=== PATIENT | female | born 1935 | race Caucasian/White ===

== ENCOUNTER 2021-02-04 06:40 | Inpatient (IN) | payer OTHER ==
[~2021-02-04] VITALS: Ht 167.6 cm; Wt 129.1 kg
[~2021-02-04 06:40] MED LIST: ALEN70 PO; AMLO5 PO; Aspir 8181 MG PO; CAND16 PO; CAND4; CARI350 PO; CELE200 PO; CIPR500 PO; CLIN300 PO; GABA100 PO; GABA600 PO; HYDCHL25 PO; Hair, Skin & N1 EACH PO; LEVSOD125 PO; LEVSOD137 PO; LOSARTAN POTAS100 MG PO; LOSHYD100 PO; METF500 PO; MULVITMINF PO; OXYACE5T PO; OXYC1TAB11 PO; PROP60 PO; PROP80ER PO; SIMV10 PO; SODCHL.65S
[2021-02-04] MEDS ORDERED: GLIP5 PO (07:51)
[2021-02-04] MEDS ORDERED: TRADJENTA5 MG PO (07:52)
[2021-02-04] MEDS ORDERED: DULO60 PO (07:54)
[2021-02-04] MEDS ORDERED: FLAX PO (07:55)
[2021-02-04] MEDS ORDERED: VITAMIN D5000 UNIT PO (07:56)
[2021-02-04] MEDS ORDERED: B-121000 MC7 PO (07:56)
[2021-02-04] MEDS ORDERED: ZINC15 PO (07:57)
[2021-02-04] MEDS ORDERED: Acerola C500 MG PO (07:57)
[2021-02-04 09:30] LABS: BASOPHILS ABSOLUTE AUTO 0.03 K/mm3 (0.00-0.23); BASOPHILS PERCENT AUTO 0 % (0-2); EOSINOPHILS ABSOLUTE AUTO 0.01 K/mm3 (0.00-0.68); EOSINOPHILS PERCENT AUTO 0 % (0-6); Hematocrit 37.8 % (33.0-51.0); Hemoglobin 12.7 g/dL (11.5-16.0); IMMATURE GRAN ABSOLUTE AUTO 0.21 K/mm3 (0.00-0.10); IMMATURE GRAN PERCENT AUTO 2 % (0-1); LYMPHOCYTES ABSOLUTE AUTO 1.38 K/mm3 (0.84-5.20); LYMPHOCYTES PERCENT AUTO 12 % (21-46); MONOCYTES ABSOLUTE AUTO 0.85 K/mm3 (0.16-1.47); MONOCYTES PERCENT AUTO 7 % (4-13); Mean Corpuscular HGB 32.2 pg (26.0-34.0); Mean Corpuscular HGB Conc 33.6 g/dL (31.5-36.5); Mean Corpuscular Volume 96 fL (80-100); Mean Platelet Volume 10.5 fL (9.1-12.4); NEUTROPHILS PERCENT AUTO 79 % (41-73); Platelet Count 186 K/mm3 (150-400); RDW Coefficient Variation 12.3 % (11.7-14.2); RDW Standard Deviation 43.7 fL (35.1-46.3); Red Blood Cell Count 3.94 M/mm3 (3.80-5.20); White Blood Cell Count 11.78 K/mm3 (4.00-11.30)
[2021-02-04 09:53] LABS: Albumin, Blood 2.7 g/dL (3.4-5.0); Albumin/Globulin Ratio 0.6 (0.8-1.8); Bilirubin, Total 0.6 mg/dL (0.1-1.0); Bun/Creatinine Ratio 22.2 (12.0-20.0); Calcium, Blood 8.4 mg/dL (8.5-10.1); Creatinine, Blood 1.35 mg/dL (0.40-1.00); Globulin, Blood 4.2 g/dL (2.2-4.0); Potassium, Blood 4.5 mmol/L (3.5-5.5); Total Protein, Blood 6.9 g/dL (6.4-8.2)
[2021-02-04 10:14] LABS: Source, Urine Clean Catch
[2021-02-04 10:42] LABS: Appearance, Urine Hazy (Clear); Bilirubin, Urine Neg (Neg); Blood, Urine 2+ (Neg); Color, Urine Yellow (P-Yellow); Glucose Qualitative, Urine 4+ (Neg); Ketones, Urine Neg (Neg); Leukocyte Esterase, Urine 3+ (Neg); Nitrite, Urine Pos (Neg); Protein, Urine 1+ (Neg); Urobilinogen, Urine NORM (Normal)
[2021-02-04 11:37] LABS: White Blood Cells, Urine 50-100 /hpf (0-5)
[2021-02-04 11:38] LABS: Bacteria Many /hpf; Red Blood Cells, Urine 0-2 /hpf (0-2); Squamous Epithelial Cells Few /hpf (Few)
[2021-02-04] MEDS ORDERED: GLIP5ER PO (13:47)
[2021-02-04] MEDS ORDERED: LOSARTAN-HCTZ1 EAC5 PO (13:47)
[2021-02-04] MEDS ORDERED: PROPRANOLOL HC120 MG PO (13:48)
[2021-02-04] MEDS ORDERED: Simvastatin20 MG PO (13:48)
--- NOTE | 2021-02-04 20:03 | NUR ---
PT RESTING IN BED AFTER ADMISSION ASSESSMENT. FAMILY HAS GONE HOME. NEPHEW HAS PA AND MADISYN IS AT [employer]. FAMILY CONTACT INFORMATION ON BOARD. PT REMIANS ALERT WITH MILD CONFUSION. IV IS SL AND WNL, 2L O2 VIA NC. LUNGS DEMISNISHED IN ALL AREAS. PT IS BEDBOUND AND NEEDS 2 PERSON ASSIST WITH BEDPAN. BED IN LOW POSITION AND CALL LIGHT WITHIN REACH. STAFF WILL CONTINUE TO MONITOR.
[2021-02-05 05:43] LABS: BASOPHILS ABSOLUTE AUTO 0.03 K/mm3 (0.00-0.23); BASOPHILS PERCENT AUTO 0 % (0-2); EOSINOPHILS PERCENT AUTO 0 % (0-6); Hematocrit 41.3 % (33.0-51.0); Hemoglobin 14.1 g/dL (11.5-16.0); IMMATURE GRAN ABSOLUTE AUTO 0.14 K/mm3 (0.00-0.10); IMMATURE GRAN PERCENT AUTO 1 % (0-1); LYMPHOCYTES ABSOLUTE AUTO 1.54 K/mm3 (0.84-5.20); LYMPHOCYTES PERCENT AUTO 16 % (21-46); MONOCYTES ABSOLUTE AUTO 0.22 K/mm3 (0.16-1.47); MONOCYTES PERCENT AUTO 2 % (4-13); Mean Corpuscular HGB 32.6 pg (26.0-34.0); Mean Corpuscular HGB Conc 34.1 g/dL (31.5-36.5); Mean Corpuscular Volume 95 fL (80-100); Mean Platelet Volume 11.1 fL (9.1-12.4); NEUTROPHILS ABSOLUTE AUTO 8.01 K/mm3 (1.96-9.15); NEUTROPHILS PERCENT AUTO 81 % (41-73); Platelet Count 229 K/mm3 (150-400); RDW Coefficient Variation 12.2 % (11.7-14.2); RDW Standard Deviation 42.9 fL (35.1-46.3); Red Blood Cell Count 4.33 M/mm3 (3.80-5.20); White Blood Cell Count 9.94 K/mm3 (4.00-11.30)
[2021-02-05 06:03] LABS: Bun/Creatinine Ratio 27.6 (12.0-20.0); Calcium, Blood 8.7 mg/dL (8.5-10.1); Creatinine, Blood 1.23 mg/dL (0.40-1.00); Potassium, Blood 5.4 mmol/L (3.5-5.5)
--- NOTE | 2021-02-05 07:26 | NUR ---
SHIFT SUMMARY: PATIENT IS A&O TO SELF, PLEASANTLY CONFUSED. BLOOD GLUCOSE AT HS WAS 481. DR ROBERTO WAS NOTIFIED AND ORDERS FOR BLOOD GLUCOSE CHECKS AND HOME MEDS WERE OBTAINED. PATIENT IS INC. OF URINE AND STOOL. UNABLE TO REPOSITION SELF IN THE BED, REQUIRING T&P Q2 HOURS. BARRIATRIC BED WAS REQUESTED. VSS, BED SIDE SWALLOW EVAL WAS COMPLETED AND PATIENT HAS NO DIFICULTY WITH ORAL INTAKE. PATIENT PULLED IV SITE THIS AM. NEW START WAS ATTEMPTED X2 UNSUCCESSFULLY.
[2021-02-05 08:36] LABS: Glucose, Blood 493 mg/dL (70-99)
--- NOTE | 2021-02-05 12:09 | NUR ---
ELEVATED CBG OF >500 THIS MORNING, LAB CAME AND REDRAW COMPLETED. DR. QUIJANO NOTIFIED OF CBG 493. ORDERS TO INCREASE INSULIN LISPRO FROM LOW SLIDING SCALE TO HIGH SLIDING SCALE FOR NEXT DOSAGE AT 1130.
[2021-02-05 12:51] LABS: Glucose, Blood 586 mg/dL (70-99)
--- NOTE | 2021-02-05 14:15 | NUR ---
Spoke with Primary RN Jie and discussed case. Jie reports family may be considering comfort care for Pt. Pt resting in bed upon arrival. Pt is A&O to self only. Pt appears comfortable with no S/S of distress. Pt engages in nonsensical conversation and states having 6 children but has not named them yet. Pt having blood drawn and this RN ended visit. Called and spoke with Pt's nephew Mahamed. Mahamed reports being Pt's POA and lives in [facility]. Discussed goals of care. Mahamed reports wanting to continue treatment but feels that Pt would not want resuscitation efforts if Pt declines. He states Pt would not want CPR or Intubation. Mahamed reports no thoughts of hospice or comfort care at this time. Mahamed reports his sister (Pt's niece) plans to visit during visiting hours and can report Pt's needs and function better. Mahamed expresses appreciation of call and reports no concerns at this time. Palliative Care will F/U when nidavid Casey is visiting.
--- NOTE | 2021-02-05 15:22 | NUR ---
RM: [id number] NAME: Chelsea Ruiz : 1935 PCP: Dr. JensenPATIENT PHYSICIAN: Dr. Nielsen CC: Kathleen AminADMIT: 02/04/21 DISCHARGE DATE: TBD DX: AFIB with RVR, UTI, TANIA RECENT HOSPITILIZATIONS: N/ARESIDENCE: [address], [place]. [address] CAREGIVER: Mahamed Agustin, Family Member, UKS: CKD stage III, morbid obesity, hypertensive renal disease, hypothyroidism, osteoporosis, spinalstenosis of the lumbar region DME: DM supplies, bariatric gurney, walker with wheels CCM: None HOME HEALTH: [facility] in November 2020 - pt. declined appointment.Update 02/05/21: Met with pt. and family member Carmela to discuss discharge planning and care coordination. Per pt. and Carmela, pt. is well supported in current living situation and is agreeable to returning home on home health once discharged. I will provide Carmela with care clinician information for additional assistance prior to discharge. They are requesting [facility] for HH. DME including hospital bed, bariatric wheelchair and wound care supplies have not been received by pt. We will contact [facility] to check status. Order can be changed to [facility] if indicated.
--- NOTE | 2021-02-05 16:07 | NUR ---
F/U visit this afternoon. Pt resting in bed with veronica Casey at bedside. Pt is pleasantly confused with no S/S of distress at this time. Engaged in therapeutic discussion with Carmela on the importance of planning for Pt's future. Carmela reports at baseline Pt's mentation is clear and orientated. Carmela reports Pt's function as declined over the last month. Pt is only able to ambulate to the bathroom and back. She spends most of the day in the chair or bed. Carmela reports Pt is incontinent and requires assistance with bathing and dressing. Carmela reports Pt has a significant pressure ulcer on her coccyx area that Dr South has been addressing. Educated Carmela on pressure relief measures to help with wound healing and prevention of future pressure ulcers. Carmela reports she has been approved by the state to be Pt's caregiver and discussions with Pt has been made for the future. Carmela reports if Pt's careneeds increase past her ability then Pt is agreeable to higher level of care. Continued therapeutic listening and answered questions. No other concerns reported at this time. Palliative Care will remain available.
--- NOTE | 2021-02-05 16:19 | NUR ---
CBG PRIOR TO LUNCH ELEVATED TO 586, DR. QUIJANO NOTIFIED AND ORDERS FOR 10 UNITS LANTUS GIVEN.
--- NOTE | 2021-02-05 16:50 | NUR ---
SHIFT SUMMARY NO ACUTE EVENTS THIS SHIFT, VSS. PATIENT REMAINED ON ROOM AIR THIS SHIFT, TOLERATING WELL. PT ORIENTED TO SELF, UNABLE TO STATE WHERE SHE WAS, DISORIENTED TO SURROUNDINGS AND EVENT. PT FOLLOWED COMMANDS T/O SHIFT, WAS ABLE TO MINIMALLY ASSIST WITH TURNING IN BED. REPOSITIONED T/O SHIFT BY NURSING STAFF, ASSISTED WITH MEALS. PT'S NIECE ENDORSED THAT THE PT NORMALLY NEEDS ASSISTANCE WITH MEALS AT BASELINE. PT WAS ABLE TO TAKE PO MEDS WITH WATER, HOWEVER APPEARED TO TOLERATE PILLS IN APPLESAUCE BETTER. BLOOD SUGAR WAS ELEVATED THROUGHOUT THIS SHIFT, DR. QUIJANO NOTIFIED. SEE PREVIOUS NURSING NOTES THIS SHIFT.
[2021-02-05 17:05] LABS: Glucose, Blood 468 mg/dL (70-99)
--- NOTE | 2021-02-05 17:12 | NUR ---
UPDATE: BLOOD SUGAR ELEVATED TO 468. DR. QUIJANO NOTIFIED AND ORDERS GIVEN TO INCREASE DIALY LANTUS DOSE TO 15 UNITS STARTING TOMORROW, 02/06/21.
--- NOTE | 2021-02-05 21:17 | NUR ---
CBG THIS EVENING 478. 6 UNITS OF HUMALOG GIVEN PER HS DOSE HIGH SLIDING SCALE. NOTIFIED DR. ROBERTO. NO NEW ORDERS AT THIS TIME. DR. ROBERTO WANTED TO STAY WITH JUST SLIDING SCALE DOSE THIS EVENING PT HAD FIRST DOSE OF SEMGLEE 10 UNITS THIS AFTERNOON AND PT RESTARTED ON ORAL DIABETIC MEDICATIONS.
--- NOTE | 2021-02-06 04:38 | NUR ---
SHIFT SUMMARY PT PLEASANTLY CONFUSED. ALERT TO SELF ONLY. PT YELLED OUT INTERMITTENTLY, MORE SO EARLY IN SHIFT. PT IS WEAK AND DECONDITIONED. ABLE TO ASSIST SLIGHTLY WITH TURNING IN THE BED BUT REQUIRES TWO PEOPLE WITH TURNS AND CHANGES. PT REMAINED ON RA. SOME SOB REPORTED BY PT WITH HEAD OF BED TOO HIGH OR TOO LOW. DEEP TISSUE WOUND TO BILATERAL BUTTOCKS. PT INCONTINENT THIS EVENING. ATTENDS IN PLACE. CBG ELEVATED AT 478. SEE PREVIOUS NOTE. REDNESS TO PANNUS FOLDS. POWDER APPLIED. NO COMPLAINTS OF PAIN. VITAL SIGNS STABLE. WILL CONTINUE TO MONITOR.
[2021-02-06 09:23] LABS: Bun/Creatinine Ratio 32.3 (12.0-20.0); Calcium, Blood 8.7 mg/dL (8.5-10.1); Creatinine, Blood 1.24 mg/dL (0.40-1.00)
--- NOTE | 2021-02-06 15:59 | NUR ---
Update 02/06/2021: Discussed DME orders with Dr. South's MA. Grace has not contacted staff back regarding DME orders. Discussed plan for DME with family member Carmela with pt. present. [facility] Pt. likely to discharge tomorrow if she remains stable overnight.
--- NOTE | 2021-02-06 17:46 | NUR ---
SHIFT SUMMARY PATIENT A/O X2 THIS SHIFT. PATIENT REMAINS ON BEDREST. PATIENT WORKED WITH PT/OT THIS SHIFT. PATIENT'S BLOOD GLUCOSE REMAINS IN THE 300+ RANGE. DR NOTIFIED, MEDICATIONS ADJUSTED THIS AM, BLOOD GLUCOSE TRENDING DOWN THROUGHOUT THE DAY. PATIENT'S NIECE IN THE ROOM VISITING THIS AFTERNOON. PATIENT WITHOUT RESPIRATORY DISTRESS THROUGHOUT THIS SHIFT. PATIENT CURRENTLY LYING IN BED RESTING.
--- NOTE | 2021-02-07 04:49 | NUR ---
SHIFT ASSESSMENT NO ACUTE CHANGES THIS EVENING. PT SLEPT THROUGHOUT THE NIGHT. REMAINS CONFUSED. ORIENTED X 2. INCONTINENT. ATTENDS IN PLACE. PRESSURE SORES WITH TWO SMALL OPEN SORES TO BUTTOCKS. PT ONLY ABLE TO HELP MINIMALLY WITH TURNING AND CHANGING. CBG 300 THIS EVENING AT HS. SLIDING SCALE AND NEW ORDER OF 30 UNITS SEMGLEE GIVEN. PT HAD NO COMPLAINTS OF PAIN. VITAL SIGNS STABLE. WILL CONTINUE TO MONITOR.
--- NOTE | 2021-02-07 15:09 | NUR ---
Update 02/07/21: Per chart review with Dr. Nielsen, pt. likely to discharge within the next 24/48 hours. Orders for hospital bed and bariatric wheelchair sent and received by [facility]. Set to be delivered to home today. Pt. scheduled for hospital f/u appointment 02/13/21 at 4:[address] Heath [address] Dr. South did not have an opening. Pt. states her understanding of potential discharge plan. As noted previously, she denies concerns regarding discharging home with niece. Orders faxed to [facility]. Pt. given discharge letter with appointment time/date noted.
--- NOTE | 2021-02-07 17:17 | NUR ---
SHIFT SUMMARY PATIENT ALERT AND ORIENTED, OCCASIONALLY FORGETFUL THIS SHIFT. PATIENT UP WITH OT TO THE CHAIR THIS SHIFT. PATIENT UP TO BED, THEN BACK TO BEDSIDE CHAIR WITH 2 ASSIST THIS AFTERNOON. PATIENT'S NIECE IN THE ROOM VISITING THIS AFTERNOON. PATIENT CURRENTLY SITTING UP IN CHAIR AWAITING DINNER.
--- NOTE | 2021-02-07 19:10 | NUR ---
ASSUMED CARE RECEIVED REPORT FROM MOOKIE SHIPLEY. PT SITTING UP IN CHAIR, IN NAD. NO ACUTE NEEDS ASSESSED AT THIS TIME. CALL LIGHT, POSSESSIONS IN REACH.
--- NOTE | 2021-02-08 03:48 | NUR ---
BAIT MAN SUMMARY PT ASLEEP, IN NAD. A&O X2-3, PLEASANT AND COOPERATIVE WITH CARES. HAS BEEN SLEEPING ON AND OFF T/O NIGHT. VS REVIEWED,WNL; O2 SATS REMAIN STABLE ON RA. NO ACUTE CHANGES TO REPORT OVERNIGHT. NO C/O PAIN. NO ACUTE NEEDS ASSESSED AT THIS TIME. CALL LIGHT, POSSESSIONS IN REACH, BED IN LOW AND LOCKED POSITION WITH ALARMS ON. WILL CONTINUE TO PROVIDE CARE NEEDED UNTIL REPORT GIVEN TO ONCOMING RN.
[2021-02-08] MEDS ORDERED: JARDIANCE25 MG PO (14:07)
[2021-02-08] MEDS ORDERED: SEMGLEE PE100 UNIT/1 SQ (14:11)
[2021-02-08] MEDS ORDERED: HUMALOG KW100 UNIT/1 SC (14:11)
--- NOTE | 2021-02-08 15:21 | NUR ---
DISCHARGED HOME WITH HH WITH NIECE. NIECE VERBALIZED UNDERSTANDING OF ADMINISTRATION OF INSULIN, AND BLOOD GLUCOSE MONITORING. NIECE STATES SHE HAS MANAGED DIABETES AND INSULIN ADMINISTRATION PREVIOUSLY. THIS RN DEMONSTRATED PROPER TECHNIQUE AND WRITTEN INSTRUCTIONS WERE ALSO PROVIDED. ALL QUESTIONS WERE ANSWERED. ALL PERSONAL BELONGINGS WERE SENT HOME WITH PATIENT.
== END 2021-02-08 15:17 | disposition home or self-care (01) | DRG 193 ==
LOC: ER 06:40 → ERHOLD 06:41 → MEDS 16:53
PROVIDERS: Emergency Medicine; ADMIT Internal Medicine
DX: J18.9 Pneumonia, unspecified organism (principal); J96.01 Acute respiratory failure with hypoxia; N39.0 Urinary tract infection, site not specified; G93.49 Other encephalopathy; B96.20 Unspecified Escherichia coli [E. coli] as the cause of diseases classified elsewhere; E66.01 Morbid (severe) obesity due to excess calories; E78.5 Hyperlipidemia, unspecified; I12.9 Hypertensive chronic kidney disease with stage 1 through stage 4 chronic kidney disease, or unspecified chronic kidney disease; N18.30 Chronic kidney disease, stage 3 unspecified; Z88.2 Allergy status to sulfonamides; Z88.8 Allergy status to other drugs, medicaments and biological substances; E03.9 Hypothyroidism, unspecified; M81.0 Age-related osteoporosis without current pathological fracture; Z90.49 Acquired absence of other specified parts of digestive tract; Z98.890 Other specified postprocedural states; Z79.82 Long term (current) use of aspirin; Z79.899 Other long term (current) drug therapy; E11.22 Type 2 diabetes mellitus with diabetic chronic kidney disease; L89.322 Pressure ulcer of left buttock, stage 2; L89.312 Pressure ulcer of right buttock, stage 2
CPT/HCPCS: 36415; 71046; 80048; 80053; 81001; 82947; 83036; 83690; 85025; 87077; 87086; 87186; 93005; 93010; 94667; 94668; 94760; 96365; 96367; 96372; 96375; 96376; 97110; 97116; 97162; 97166; 97530; 99285-25; A9270; G0378; J0456; J0696; J1650; J2543; J2920; J2930; J7030; J7050

== ENCOUNTER → 2021-02-28 | Outpatient (CLI) | payer OTHER ==
[~2021-02-28] MED LIST changes: +Acerola C500 MG PO; +B-121000 MC7 PO; +DULO60 PO; +FLAX PO; +GLIP5 PO; +GLIP5ER PO; +HUMALOG KW100 UNIT/1 SC; +JARDIANCE25 MG PO; +LOSARTAN-HCTZ1 EAC5 PO; +PROPRANOLOL HC120 MG PO; +SEMGLEE PE100 UNIT/1 SQ; +Simvastatin20 MG PO; +TRADJENTA5 MG PO; +VITAMIN D5000 UNIT PO; +ZINC15 PO
== END | disposition home or self-care (01) ==
LOC: LAB SHORT 13:30 → LAB 13:30
DX: N39.0 Urinary tract infection, site not specified (principal)
CPT/HCPCS: 87077; 87086; 87186

== ENCOUNTER 2021-06-26 10:43 | Emergency (ER) | payer OTHER ==
[~2021-06-26] VITALS: Ht 162.6 cm; Wt 111.1 kg
[2021-06-26 11:14] LABS: BASOPHILS ABSOLUTE AUTO 0.03 K/mm3 (0.00-0.23); BASOPHILS PERCENT AUTO 0 % (0-2); EOSINOPHILS ABSOLUTE AUTO 0.31 K/mm3 (0.00-0.68); EOSINOPHILS PERCENT AUTO 3 % (0-6); Hematocrit 42.4 % (33.0-51.0); Hemoglobin 13.4 g/dL (11.5-16.0); IMMATURE GRAN ABSOLUTE AUTO 0.07 K/mm3 (0.00-0.10); IMMATURE GRAN PERCENT AUTO 1 % (0-1); LYMPHOCYTES PERCENT AUTO 20 % (21-46); MONOCYTES ABSOLUTE AUTO 0.69 K/mm3 (0.16-1.47); MONOCYTES PERCENT AUTO 7 % (4-13); Mean Corpuscular HGB 30.3 pg (26.0-34.0); Mean Corpuscular HGB Conc 31.6 g/dL (31.5-36.5); Mean Corpuscular Volume 96 fL (80-100); Mean Platelet Volume 9.8 fL (9.1-12.4); NEUTROPHILS ABSOLUTE AUTO 7.16 K/mm3 (1.96-9.15); NEUTROPHILS PERCENT AUTO 69 % (41-73); Platelet Count 246 K/mm3 (150-400); RDW Standard Deviation 46.7 fL (35.1-46.3); Red Blood Cell Count 4.42 M/mm3 (3.80-5.20); White Blood Cell Count 10.36 K/mm3 (4.00-11.30)
[2021-06-26 11:30] LABS: Source, Urine Clean Catch
[2021-06-26 11:33] LABS: Appearance, Urine Hazy (Clear); Bilirubin, Urine Neg (Neg); Blood, Urine 5+ (Neg); Color, Urine Yellow (P-Yellow); Glucose Qualitative, Urine Neg (Neg); Ketones, Urine Neg (Neg); Leukocyte Esterase, Urine 3+ (Neg); Nitrite, Urine Neg (Neg); Protein, Urine 3+ (Neg); Urobilinogen, Urine NORM (Normal)
[2021-06-26 11:33] LABS: Albumin, Blood 3.2 g/dL (3.4-5.0); Albumin/Globulin Ratio 0.7 (0.8-1.8); Bilirubin, Total 0.5 mg/dL (0.1-1.0); Calcium, Blood 9.3 mg/dL (8.5-10.1); Creatinine, Blood 1.28 mg/dL (0.40-1.00); Globulin, Blood 4.3 g/dL (2.2-4.0); Potassium, Blood 4.8 mmol/L (3.5-5.5); Total Protein, Blood 7.5 g/dL (6.4-8.2)
[2021-06-26 11:41] LABS: White Blood Cells, Urine TNTC /hpf (0-5)
[2021-06-26 11:42] LABS: Bacteria Many /hpf; Red Blood Cells, Urine TNTC /hpf (0-2); Squamous Epithelial Cells Rare /hpf (Few)
[2021-06-26] MEDS ORDERED: CEPH500 PO (12:14)
== END 2021-06-26 12:55 | disposition home or self-care (01) ==
LOC: ER 10:43
PROVIDERS: Emergency Medicine
DX: N39.0 Urinary tract infection, site not specified (principal); I10 Essential (primary) hypertension; E78.5 Hyperlipidemia, unspecified; E11.9 Type 2 diabetes mellitus without complications
CPT/HCPCS: 36415; 80053; 81001; 85025; 87077; 87086; 87186; 96365; 99283-25; J0696

== ENCOUNTER → 2021-09-02 | Outpatient (CLI) | payer OTHER ==
[~2021-09-02] MED LIST changes: +CEPH500 PO
== END | disposition home or self-care (01) ==
LOC: LAB SHORT 14:45
DX: R30.9 Painful micturition, unspecified (principal)
CPT/HCPCS: 87086

== ENCOUNTER → 2021-09-24 | Outpatient (CLI) | payer OTHER ==
[2021-09-24 11:18] LABS: BASOPHILS ABSOLUTE AUTO 0.03 K/mm3 (0.00-0.23); BASOPHILS PERCENT AUTO 0 % (0-2); EOSINOPHILS ABSOLUTE AUTO 0.36 K/mm3 (0.00-0.68); EOSINOPHILS PERCENT AUTO 3 % (0-6); Hematocrit 41.1 % (33.0-51.0); Hemoglobin 13.2 g/dL (11.5-16.0); IMMATURE GRAN ABSOLUTE AUTO 0.07 K/mm3 (0.00-0.10); IMMATURE GRAN PERCENT AUTO 1 % (0-1); LYMPHOCYTES ABSOLUTE AUTO 2.31 K/mm3 (0.84-5.20); LYMPHOCYTES PERCENT AUTO 19 % (21-46); MONOCYTES ABSOLUTE AUTO 0.97 K/mm3 (0.16-1.47); MONOCYTES PERCENT AUTO 8 % (4-13); Mean Corpuscular HGB 30.3 pg (26.0-34.0); Mean Corpuscular HGB Conc 32.1 g/dL (31.5-36.5); Mean Corpuscular Volume 94 fL (80-100); Mean Platelet Volume 9.7 fL (9.1-12.4); NEUTROPHILS ABSOLUTE AUTO 8.59 K/mm3 (1.96-9.15); NEUTROPHILS PERCENT AUTO 70 % (41-73); Platelet Count 263 K/mm3 (150-400); RDW Coefficient Variation 13.4 % (11.7-14.2); RDW Standard Deviation 46.6 fL (35.1-46.3); Red Blood Cell Count 4.36 M/mm3 (3.80-5.20); White Blood Cell Count 12.33 K/mm3 (4.00-11.30)
[2021-09-24 11:26] LABS: Bun/Creatinine Ratio 18.2 (12.0-20.0); Calcium, Blood 9.2 mg/dL (8.5-10.1); Creatinine, Blood 1.48 mg/dL (0.40-1.00); Potassium, Blood 4.4 mmol/L (3.5-5.5)
== END ==
LOC: LAB SHORT 11:13
PROVIDERS: Physician Assistant Surgical
DX: R05.9 Cough, unspecified (principal); R06.00 Dyspnea, unspecified
CPT/HCPCS: 80048; 84484; 85025; 85379

== ENCOUNTER 2022-01-02 10:15 | Emergency (ER) | payer OTHER ==
[~2022-01-02] VITALS: Ht 165.1 cm; Wt 113.4 kg
== END 2022-01-02 14:11 | disposition home or self-care (01) ==
LOC: ER 10:15
DX: M25.561 Pain in right knee (principal); E11.9 Type 2 diabetes mellitus without complications; E78.5 Hyperlipidemia, unspecified; I10 Essential (primary) hypertension; E66.01 Morbid (severe) obesity due to excess calories; Z79.4 Long term (current) use of insulin; Z79.899 Other long term (current) drug therapy; Z79.82 Long term (current) use of aspirin; Z88.2 Allergy status to sulfonamides; Z88.7 Allergy status to serum and vaccine; Z68.41 Body mass index [BMI] 40.0-44.9, adult
CPT/HCPCS: 73564

== ENCOUNTER 2022-01-09 22:03 | Inpatient (IN) | payer OTHER ==
[~2022-01-09] VITALS: Ht 162.6 cm; Wt 132.9 kg
[~2022-01-09 22:03] MED LIST changes: +GABA300 PO; -GABA600 PO
[2022-01-09 23:28] LABS: BASOPHILS ABSOLUTE AUTO 0.04 K/mm3 (0.00-0.23); BASOPHILS PERCENT AUTO 0 % (0-2); EOSINOPHILS ABSOLUTE AUTO 0.11 K/mm3 (0.00-0.68); EOSINOPHILS PERCENT AUTO 1 % (0-6); Hematocrit 42.4 % (33.0-51.0); Hemoglobin 13.7 g/dL (11.5-16.0); IMMATURE GRAN PERCENT AUTO 1 % (0-1); LYMPHOCYTES ABSOLUTE AUTO 1.87 K/mm3 (0.84-5.20); LYMPHOCYTES PERCENT AUTO 11 % (21-46); MONOCYTES ABSOLUTE AUTO 1.18 K/mm3 (0.16-1.47); MONOCYTES PERCENT AUTO 7 % (4-13); Mean Corpuscular HGB 30.6 pg (26.0-34.0); Mean Corpuscular HGB Conc 32.3 g/dL (31.5-36.5); Mean Corpuscular Volume 95 fL (80-100); NEUTROPHILS ABSOLUTE AUTO 13.97 K/mm3 (1.96-9.15); NEUTROPHILS PERCENT AUTO 80 % (41-73); NRBC ABSOLUTE 0.02 K/mm3 (0.00-0.02); NRBC Auto 0.1 /100 WBC (0.0-0.2); RDW Coefficient Variation 13.2 % (11.7-14.2); RDW Standard Deviation 46.3 fL (35.1-46.3); Red Blood Cell Count 4.48 M/mm3 (3.80-5.20); White Blood Cell Count 17.37 K/mm3 (4.00-11.30)
[2022-01-09 23:29] LABS: pH Blood Venous 7.29 (7.34-7.37)
[2022-01-09 23:30] LABS: Base Excess Venous 3.6 mmol/L; Bicarbonate Venous 25.3 mmol/L (24.0-30.0); PCO2 Venous 62.6 mmHg (38-42)
[2022-01-09 23:41] LABS: Mean Platelet Volume 10.1 fL (9.1-12.4); Platelet Count 252 K/mm3 (150-400)
[2022-01-09 23:47] LABS: Albumin/Globulin Ratio 0.6 (0.8-1.8); Bilirubin, Total 0.6 mg/dL (0.1-1.0); Bun/Creatinine Ratio 24.3 (12.0-20.0); Calcium, Blood 9.6 mg/dL (8.5-10.1); Creatinine, Blood 1.52 mg/dL (0.40-1.00); Globulin, Blood 4.7 g/dL (2.2-4.0); Potassium, Blood 4.4 mmol/L (3.5-5.5); Total Protein, Blood 7.7 g/dL (6.4-8.2)
[2022-01-10] MEDS ORDERED: ASPI325 PO (01:05)
[2022-01-10 01:22] LABS: Influenza A, PCR NEGATIVE (NEGATIVE); Influenza B, PCR NEGATIVE (NEGATIVE); Resp Syncytial Virus, PCR NEGATIVE (NEGATIVE); SARS-Cov-2 (COVID-19) PCR, MMC NEGATIVE (NEGATIVE)
[2022-01-10] MEDS ORDERED: GLIP5ER PO (01:44)
[2022-01-10] MEDS ORDERED: TRADJENTA5 MG PO (01:46)
[2022-01-10] MEDS ORDERED: OMEP20ER PO (01:46)
[2022-01-10 03:00] LABS: Free Thyroxine 1.01 ng/dL (0.70-1.60); Thyroid Stimulating Hormone 4.6 uIU/mL (0.360-4.800)
--- NOTE | 2022-01-10 04:30 | NUR ---
ARRIVAL TO ICU PT ARRIVED TO ICU 10 AT 0310 VIA ED BED AND TRANSFERED OVER TO ICU BED VIA SLIDE SHEET. PT IS ALERT/ORIENTED X4; CHALLENGING TO UNDERSTAND WHEN TOP DENTURES ARE REMOVED; WEAKNESS TO ALL EXTREMITIES NOTED DURING REPOSITIONING. PT ARRIVED FROM ED ON 4L NC AND PT WAS WHEEZING AGAIN DURING TRANSPORT; PT PLACED BACK ON BIPAP 07/09 WITH 2L BLEED IN; WHEEZING NOW IMPROVED; RR LOW 20'S; NO C/O DYSPNEA. SINUS HR IN 80'S. SBP 130'S. URINARY INCONTINENCE NOTED. SOME REDNESS NOTED TO ABD FOLD. SEE ADMISSION ASSESSMENT FOR FULL ASSESSMENT. PT STATED THAT SHE LIVES WITH HER NIECE IN [facility].
--- NOTE | 2022-01-10 06:01 | NUR ---
END OF SHIFT SUMMARY NO CHANGES SINCE ARRIVAL TO ICU. PT CONT TO BE ON BIPAP 07/09 WITH 2L BLEED IN; WHEEZING HAS IMPROVED. PT HAS SLEPT SINCE ADISSION ASSESSMENT. AFEBRILE. HR 70'S. SBP 130-150'S. CONT TO BE INCONTINENT OF URINE. WILL REPORT TO AM RN WHEN AVAILABLE.
--- NOTE | 2022-01-10 07:29 | NUR ---
Assumed care of pt at 0700. Report received from Lidia DAMICO. Pt A&O x 4. Answers questions. Follows commands. Verbalizes needs. Pleasant and cooperative with care. On BiPAP 12/8 and 2 LPM bleed in. SR per monitor. Bed in lowest position. Call light in reach. Pt denies need at this time.
[2022-01-10 10:05] LABS: PCO2 Arterial 45.5 mmHg (35-45); PO2 Arterial 50.4 mmHg (80-100)
[2022-01-10 10:13] LABS: BASOPHILS ABSOLUTE AUTO 0.05 K/mm3 (0.00-0.23); BASOPHILS PERCENT AUTO 0 % (0-2); EOSINOPHILS PERCENT AUTO 1 % (0-6); Hematocrit 40.4 % (33.0-51.0); Hemoglobin 13.2 g/dL (11.5-16.0); IMMATURE GRAN PERCENT AUTO 1 % (0-1); LYMPHOCYTES ABSOLUTE AUTO 2.07 K/mm3 (0.84-5.20); LYMPHOCYTES PERCENT AUTO 13 % (21-46); MONOCYTES ABSOLUTE AUTO 1.32 K/mm3 (0.16-1.47); MONOCYTES PERCENT AUTO 8 % (4-13); Mean Corpuscular HGB 30.9 pg (26.0-34.0); Mean Corpuscular HGB Conc 32.7 g/dL (31.5-36.5); Mean Corpuscular Volume 95 fL (80-100); Mean Platelet Volume 10.2 fL (9.1-12.4); NEUTROPHILS ABSOLUTE AUTO 12.53 K/mm3 (1.96-9.15); NEUTROPHILS PERCENT AUTO 78 % (41-73); Platelet Count 258 K/mm3 (150-400); RDW Coefficient Variation 13.2 % (11.7-14.2); RDW Standard Deviation 45.6 fL (35.1-46.3); Red Blood Cell Count 4.27 M/mm3 (3.80-5.20); White Blood Cell Count 16.17 K/mm3 (4.00-11.30)
[2022-01-10 10:34] LABS: Albumin, Blood 2.8 g/dL (3.4-5.0); Albumin/Globulin Ratio 0.6 (0.8-1.8); Bilirubin, Total 0.6 mg/dL (0.1-1.0); Bun/Creatinine Ratio 24.6 (12.0-20.0); Calcium, Blood 9.4 mg/dL (8.5-10.1); Creatinine, Blood 1.42 mg/dL (0.40-1.00); Globulin, Blood 4.6 g/dL (2.2-4.0); Potassium, Blood 4.5 mmol/L (3.5-5.5); Total Protein, Blood 7.4 g/dL (6.4-8.2)
[2022-01-10 14:19] LABS: Source, Urine Foley catheter
[2022-01-10 14:25] LABS: Appearance, Urine Hazy (Clear); Bilirubin, Urine Neg (Neg); Blood, Urine 1+ (Neg); Color, Urine Yellow (P-Yellow); Glucose Qualitative, Urine Neg (Neg); Ketones, Urine Neg (Neg); Leukocyte Esterase, Urine 1+ (Neg); Nitrite, Urine Pos (Neg); Protein, Urine 2+ (Neg); Urobilinogen, Urine NORM (Normal)
[2022-01-10 14:32] LABS: Bacteria Many /hpf; Mucus Light (0-Heavy); Red Blood Cells, Urine 0-2 /hpf (0-2); Squamous Epithelial Cells Few /hpf (Few); White Blood Cells, Urine 50-100 /hpf (0-5)
[2022-01-10 14:33] LABS: Hyaline Casts 0-2 /lpf (0-2)
[2022-01-10 14:39] LABS: U Amphetamine Screen Not Detected; U Barbituate Screen Not Detected; U Benzodiazapine Screen Not Detected; U Buprenorphine Screen Not Detected; U Cannabinoids Screen Not Detected; U Cocaine Screen Not Detected; U Methadone Screen Not Detected; U Methamphetamine Screen Not Detected; U Opiates Screen Not Detected; U Oxycodone Screen Not Detected; U Phencyclidine Screen Not Detected; U Propoxyphene Screen Not Detected
--- NOTE | 2022-01-10 18:34 | NUR ---
SUMMARY Pt A&O x 4. Answers questions. Follows commands. Verbalizes needs. Hard of hearing. Oral care done and dentures inserted. Diet ordered. Pt tolerating well. SpO2 90% or greater with 2 LPM NC or BiPAP. SR per monitor. BP stable.
--- NOTE | 2022-01-10 19:15 | NUR ---
ASSUMPTION OF CARE PT IS ALERT AND ORIENTED, LYING IN BED. NO ACUTE S/S OF DISTRESS NOTED AT THIS TIME. VS WNL. ABLE TO MAKE NEEDS KNOWN, CONVERSATION APPROPRIATE.
[2022-01-11 05:16] LABS: BASOPHILS ABSOLUTE AUTO 0.06 K/mm3 (0.00-0.23); BASOPHILS PERCENT AUTO 0 % (0-2); EOSINOPHILS ABSOLUTE AUTO 0.11 K/mm3 (0.00-0.68); EOSINOPHILS PERCENT AUTO 1 % (0-6); Hematocrit 37.9 % (33.0-51.0); Hemoglobin 12.3 g/dL (11.5-16.0); IMMATURE GRAN ABSOLUTE AUTO 0.17 K/mm3 (0.00-0.10); IMMATURE GRAN PERCENT AUTO 1 % (0-1); LYMPHOCYTES ABSOLUTE AUTO 2.19 K/mm3 (0.84-5.20); LYMPHOCYTES PERCENT AUTO 14 % (21-46); MONOCYTES ABSOLUTE AUTO 1.46 K/mm3 (0.16-1.47); MONOCYTES PERCENT AUTO 9 % (4-13); Mean Corpuscular HGB 30.5 pg (26.0-34.0); Mean Corpuscular HGB Conc 32.5 g/dL (31.5-36.5); Mean Corpuscular Volume 94 fL (80-100); NEUTROPHILS ABSOLUTE AUTO 12.18 K/mm3 (1.96-9.15); NEUTROPHILS PERCENT AUTO 75 % (41-73); Platelet Count 274 K/mm3 (150-400); RDW Coefficient Variation 12.9 % (11.7-14.2); RDW Standard Deviation 44.2 fL (35.1-46.3); Red Blood Cell Count 4.03 M/mm3 (3.80-5.20); White Blood Cell Count 16.17 K/mm3 (4.00-11.30)
[2022-01-11 05:47] LABS: Albumin, Blood 2.6 g/dL (3.4-5.0); Albumin/Globulin Ratio 0.6 (0.8-1.8); Bilirubin, Total 0.6 mg/dL (0.1-1.0); Bun/Creatinine Ratio 25.5 (12.0-20.0); Calcium, Blood 9.4 mg/dL (8.5-10.1); Creatinine, Blood 1.37 mg/dL (0.40-1.00); Globulin, Blood 4.7 g/dL (2.2-4.0); Potassium, Blood 4.1 mmol/L (3.5-5.5); Total Protein, Blood 7.3 g/dL (6.4-8.2)
--- NOTE | 2022-01-11 07:35 | NUR ---
ASSUMPTION OF CARE RECEIVED REPORT FROM TROY DAMICO, ASSUMED CARE OF PATIENT. PATIENT IN BED, ALERT, 2L [address] WITH SATS ABOVE 90%. RT AT BEDSIDE NOW ADMINISTERING BREATHING TREATMENT. VITALS STABLE, NO S/S OF DISTRESS OR REPORTS OF DISCOMFORTS. WILL REVIEW ORDERS AND TREAT PRESCRIBED.
--- NOTE | 2022-01-11 18:00 | NUR ---
SHIFT SUMMARY NO ACUTE CHANGES THROUGH SHIFT. STABLE VITALS ON 2L 02 VIA NC. PT EVAL AND UP TO CHAIR, TOLERATED WELL. CBG TRENDING UP, ORDERS CHANGED TO HIGH SLIDING SCALE AND LONG ACTING ADDED. PATIENT DID NOT WANT LUNCH BUT ATE SNACKS THAT [facility] PROVIDED. CURRENTLY EATING DINNER INDEPENDENTLY. WILL CONTINUE TO MONITOR AND REPORT TO ONCOMING RN.
--- NOTE | 2022-01-11 19:10 | NUR ---
ASSUMED CARE OF PT, REPORT RECEIVED. PT IS RESTING QUIETLY RECLINING IN BED AND WATCHING TV WITH DINNER TRAY PRESENT ON OVERBED TABLE, DOES APPEAR TO BE PICKING AT DINNER AT THIS TIME WILL CONT TO MONITOR.
[2022-01-12 03:31] LABS: BASOPHILS ABSOLUTE AUTO 0.04 K/mm3 (0.00-0.23); BASOPHILS PERCENT AUTO 0 % (0-2); EOSINOPHILS PERCENT AUTO 0 % (0-6); Hematocrit 38.4 % (33.0-51.0); Hemoglobin 12.5 g/dL (11.5-16.0); IMMATURE GRAN ABSOLUTE AUTO 0.29 K/mm3 (0.00-0.10); IMMATURE GRAN PERCENT AUTO 2 % (0-1); LYMPHOCYTES ABSOLUTE AUTO 1.92 K/mm3 (0.84-5.20); LYMPHOCYTES PERCENT AUTO 14 % (21-46); MONOCYTES ABSOLUTE AUTO 1.11 K/mm3 (0.16-1.47); MONOCYTES PERCENT AUTO 8 % (4-13); Mean Corpuscular HGB 30.4 pg (26.0-34.0); Mean Corpuscular HGB Conc 32.6 g/dL (31.5-36.5); Mean Corpuscular Volume 93 fL (80-100); Mean Platelet Volume 10.1 fL (9.1-12.4); NEUTROPHILS ABSOLUTE AUTO 10.11 K/mm3 (1.96-9.15); NEUTROPHILS PERCENT AUTO 75 % (41-73); Platelet Count 271 K/mm3 (150-400); RDW Coefficient Variation 12.5 % (11.7-14.2); RDW Standard Deviation 43.5 fL (35.1-46.3); Red Blood Cell Count 4.11 M/mm3 (3.80-5.20); White Blood Cell Count 13.47 K/mm3 (4.00-11.30)
[2022-01-12 03:56] LABS: Albumin, Blood 2.5 g/dL (3.4-5.0); Albumin/Globulin Ratio 0.5 (0.8-1.8); Bilirubin, Total 0.4 mg/dL (0.1-1.0); Bun/Creatinine Ratio 31.7 (12.0-20.0); Calcium, Blood 9.2 mg/dL (8.5-10.1); Creatinine, Blood 1.61 mg/dL (0.40-1.00); Globulin, Blood 4.8 g/dL (2.2-4.0); Total Protein, Blood 7.3 g/dL (6.4-8.2)
--- NOTE | 2022-01-12 06:27 | NUR ---
PT RESTS QUIETLY WITH OXYGEN VIA NASAL CANNULA AT 2 L/MIN THROUGHOUT NOC, SATS MAINTAINED AND PT DENIED NEEDS THROUGHOUT SHIFT WITH HOURLY ROUNDS. DR CHRISTENSEN CONTACTED REGARDING CONTINUED ELEVATED BLOOD GLUCOSE LEVEL WITH AM LABS, DISCUSSED CHANGES TO INSULIN ORDERS AT EVENING MEAL AND HS LAST NOC, HE STATED THAT HE WILL REVIEW CHART FOR POTENTIAL ORDER CHANGES. PT CONTINUES RESTING QUIETLY AT THIS TIME.
--- NOTE | 2022-01-12 09:23 | NUR ---
ASSUMED CARE OF PT, REPORT RCV'D FROM ANDREWS Evangelista RN. PT ALERT AND ORIENTED, OCCASIONALLY HAS DIFFICULTY FINDING HER WORDS. PT PLEASANT AND COOPERATIVE WITH CARE. SATS 89-90% ON 2L NC, AUDITORY UPPER WHEEZE HEARD, IMPROVES WHEN SITTING UP STRAIGHT IN CHAIR. PT WORKED WITH PHYSICAL THERAPY USING WALKER TO AMBULATED TO CHAIR, PER PATIENT THIS IS HER BASELINE. PT HAS GOOD APPETITE, ABLE TO FEED HERSELF. VSS AT THIS TIME. SEE FULL SHIFT ASSESSMENT.
--- NOTE | 2022-01-12 10:37 | NUR ---
PT'S PAULO SANDS ([phone]) UPDATED WITH PT'S STATUS AND PLAN OF CARE.
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
--- NOTE | 2022-01-13 06:34 | NUR ---
SHIFT SUMMARY: PATIENT WITH AUDIABLE EXP WHEEZE LITTLE IMPROVEMENT WITH RT TREATMENT. SAT > 90% ON RA. PER MD NOTE NO SUPPLEMENTAL O2 GIVEN ON NOC. PATIENT HAD ONGOING COUGH THAT WAS INTERUPPTING HER SLEEP MD CONTACTED, COUGH SUPPRESENT ORDERED AND ADMINISTERED. PATIENT VEEBALIZED RELEIF OF SYMPTOMS AND WAS ABLE TO FALL ASLEEP. EDWARDS IN PLACE FOR ACCURATE I&O, ADHERES TO FLUID RESTRICTION. PATIENT IS EAGER TO DC HOME WITH MADISYN.
--- NOTE | 2022-01-13 16:13 | NUR ---
SHIFT SUMMARY PT AxOx4. PLEASANT AND COOPERATIVE WITH CARE. INTERMITTENT MILD CONFUSION. PT HAD SOB WITH EXERTION AND AUDIBLE WHEEZING AT REST T/O THIS SHIFT. PHYSICAL THERAPY WORKED WITH PT TODAY. DC'D EDWARDS CATHETER AT APPROX 1545. SWALLOW EVAL ORDERED R/T FREQUENT CHOKING AND THROAT CLEARING AT MEAL TIMES. PER TANDEM MILL ROLLER, TELE RUNNING NSR. PT'S FLUID RESTRICTION AT LIMIT FOR DAY SHIFT. PT'S NIECE IN ROOM, UPDATED ON PLAN OF CARE. CURRENT PLAN IS TO DC HOME WITH HOME HEALTH WHEN PATIENT IS STABLE. VITALS REVIEWED. PT CURRENTLY RESTING IN BED WITH CALL LIGHT IN REACH. DENIES ANY NEEDS AT THIS TI
[2022-01-14] MEDS ORDERED: OLMESARTAN MEDO40 MG PO (02:06)
[2022-01-14] MEDS ORDERED: FUROSEMIDE40 MG PO (02:07)
[2022-01-14] MEDS ORDERED: TORSE20 PO (02:08)
[2022-01-14] MEDS ORDERED: BASAGLAR K100 UNIT/3 SC (02:08)
[2022-01-14] MEDS ORDERED: Ventolin/Prove6.7 GM INH (02:09)
[2022-01-14] MEDS ORDERED: INSULIN LI100 UNIT/6 SC (02:10)
--- NOTE | 2022-01-14 05:22 | NUR ---
SHIFT SUMMARY: NO SIGNIFICANT EVENTS ON NOC. PATIENT REMAINS ON RA SAT > 90%. ABLE TO VOID POST EDWARDS REMOVAL. INCONTINENT EPISODE ON NOC. SLEPT WELL THROUGH THE NIGHT.
[2022-01-14 05:46] LABS: Hematocrit 40.9 % (33.0-51.0); Hemoglobin 13.6 g/dL (11.5-16.0); Mean Corpuscular HGB 30.4 pg (26.0-34.0); Mean Corpuscular HGB Conc 33.3 g/dL (31.5-36.5); Mean Corpuscular Volume 92 fL (80-100); Mean Platelet Volume 10.3 fL (9.1-12.4); NRBC ABSOLUTE 0.02 K/mm3 (0.00-0.02); NRBC Auto 0.1 /100 WBC (0.0-0.2); Platelet Count 373 K/mm3 (150-400); RDW Coefficient Variation 12.5 % (11.7-14.2); RDW Standard Deviation 41.9 fL (35.1-46.3); Red Blood Cell Count 4.47 M/mm3 (3.80-5.20); White Blood Cell Count 16.28 K/mm3 (4.00-11.30)
[2022-01-14 06:12] LABS: Albumin, Blood 2.7 g/dL (3.4-5.0); Albumin/Globulin Ratio 0.6 (0.8-1.8); Bilirubin, Total 0.3 mg/dL (0.1-1.0); Bun/Creatinine Ratio 47.9 (12.0-20.0); Calcium, Blood 9.9 mg/dL (8.5-10.1); Creatinine, Blood 1.42 mg/dL (0.40-1.00); Globulin, Blood 4.9 g/dL (2.2-4.0); Potassium, Blood 4.1 mmol/L (3.5-5.5); Total Protein, Blood 7.6 g/dL (6.4-8.2)
[2022-01-14 06:58] LABS: BAND PERCENT MAN 4 % (0-8); BASOPHILS PERCENT MAN 0 % (0-2); EOSINOPHILS PERCENT MAN 0 % (0-6); LYMPHOCYTES ABSOLUTE MAN 2.44 K/mm3 (0.84-5.20); LYMPHOCYTES PERCENT MAN 15 % (21-46); MONOCYTES ABSOLUTE MAN 1.13 K/mm3 (0.16-1.47); MONOCYTES PERCENT MAN 7 % (4-13); MYELOCYTE ABSOLUTE MAN 0.48 K/mm3 (0.00-0.00); MYELOCYTE PERCENT MAN 3 % (0-0); NEUTROPHILS ABSOLUTE MAN 12.21 K/mm3 (1.96-9.15); SEG NEUTROPHILS PERCENT MAN 71 % (41-73); TOTAL CELLS COUNTED 100
--- NOTE | 2022-01-14 19:09 | NUR ---
SUMMARY- PT A/O X3, CONFUSION AT TIMES, DECREASE IN STM. BEDREST TODAY. DEPENDANT IN CARE, INCONT URINE. LG INCONT WITH IV BUMEX. FEEDS SELF MEALS, TOLERATING FOOD AND FLUIDS WITH RESTRICION. CONT WITH LOUD EXP WHEEZE ESPECIALLY WHILE EATING. SPEECH CANGED DIET TO [facility] SOFT TO AID IN BREATHING WHILE EATING. ROOM AIR ALL DAY, SATS 90-92%. REPORTED ALL TO NOC RN.
--- NOTE | 2022-01-15 04:36 | NUR ---
SHIFT SUMMARY: NO SIGNIFICNAT EVENTS ON NOC. PATIENT VOIDING INDEPENDENTLY INCONT EPISODES. NO CPAP OR SUPPLEMENTAL O2 SAT >90%. CBGS Q4, SSI PROVIDED PER EMAR. REDNESS/RASH UNDER PANNUS WORSENING- CLEANSED, DRIED, POWDER APPLIED, AND PILLOW CASES PLACED TO HELP REDUCE MOISTURE.
[2022-01-15] MEDS ORDERED: HYDCHL25 PO (12:45)
[2022-01-15] MEDS ORDERED: IPRAT-ALBUT 0.5-3 ML INH (12:46)
[2022-01-15] MEDS ORDERED: MIRALAX17 GM PO (12:47)
[2022-01-15] MEDS ORDERED: CEFD300 PO (12:48)
--- NOTE | 2022-01-15 14:12 | NUR ---
DISCHARGE NOTE PT WAS DISCHARGED, WITH ALL PERSONAL BELONGINGS, TO CARE OF NIECE/CAREGIVER IN A PRIVATE VEHICLE. PT WAS ESCORTED VIA WHEELCHAIR AND RN TO PRIVATE CAR WITHOUT INCIDENT. PRIOR TO DEPARTURE IV WAS REMOVED, PT TOLERATED PROCEDURE WELL.
== END 2022-01-15 13:57 | DRG 189 ==
LOC: ER 22:03 → ICUW 01-10 01:33 → MEDS 01-12 13:46
PROVIDERS: Emergency Medicine; Internal Medicine; Student in an Organized Health Care Education/Training Program; ADMIT Internal Medicine
PROC: 5A09457 Assistance with Respiratory Ventilation, 24-96 Consecutive Hours, Continuous Positive Airway Pressure (ICD-10-PCS; principal; 2022-01-10)
DX: J96.02 Acute respiratory failure with hypercapnia (principal); E87.2 Acidosis; I13.0 Hypertensive heart and chronic kidney disease with heart failure and stage 1 through stage 4 chronic kidney disease, or unspecified chronic kidney disease; G93.49 Other encephalopathy; Z66 Do not resuscitate; N39.0 Urinary tract infection, site not specified; I50.32 Chronic diastolic (congestive) heart failure; Z20.822 Contact with and (suspected) exposure to COVID-19; J96.01 Acute respiratory failure with hypoxia; N18.30 Chronic kidney disease, stage 3 unspecified; Z68.37 Body mass index [BMI] 37.0-37.9, adult; B96.20 Unspecified Escherichia coli [E. coli] as the cause of diseases classified elsewhere; G47.33 Obstructive sleep apnea (adult) (pediatric); E03.9 Hypothyroidism, unspecified; E11.22 Type 2 diabetes mellitus with diabetic chronic kidney disease; M81.0 Age-related osteoporosis without current pathological fracture; M48.061 Spinal stenosis, lumbar region without neurogenic claudication; E66.01 Morbid (severe) obesity due to excess calories; Z88.2 Allergy status to sulfonamides; Z88.8 Allergy status to other drugs, medicaments and biological substances; Z79.82 Long term (current) use of aspirin; Z79.899 Other long term (current) drug therapy; Z79.4 Long term (current) use of insulin; Z90.49 Acquired absence of other specified parts of digestive tract; Z98.890 Other specified postprocedural states
CPT/HCPCS: 0241U; 36415; 36600; 51702; 71045; 80053; 81001; 82803; 82947; 83605; 83880; 84439; 84443; 84484; 85025; 87040; 87077; 87086; 87186; 92526; 92610; 93005; 93010; 94640; 94660; 94664; 94760; 97110; 97116; 97162; 97166; 97530; 97535; 99285-25; A9270; J0696; J1650; J1815; J1940; J7512

== ENCOUNTER 2022-01-17 15:53 | Inpatient (IN) | payer OTHER ==
[~2022-01-17] VITALS: Ht 162.6 cm; Wt 132.4 kg
[~2022-01-17 15:53] MED LIST changes: +ASPI325 PO; +BASAGLAR K100 UNIT/3 SC; +CEFD300 PO; +FUROSEMIDE40 MG PO; +INSULIN LI100 UNIT/6 SC; +IPRAT-ALBUT 0.5-3 ML INH; +MIRALAX17 GM PO; +OLMESARTAN MEDO40 MG PO; +OMEP20ER PO; +TORSE20 PO; +Ventolin/Prove6.7 GM INH
[2022-01-17 16:50] LABS: Hematocrit 52.9 % (33.0-51.0); Hemoglobin 17.5 g/dL (11.5-16.0); Mean Corpuscular HGB 30.3 pg (26.0-34.0); Mean Corpuscular HGB Conc 33.1 g/dL (31.5-36.5); Mean Corpuscular Volume 92 fL (80-100); Mean Platelet Volume 10.4 fL (9.1-12.4); NRBC ABSOLUTE 0.03 K/mm3 (0.00-0.02); NRBC Auto 0.1 /100 WBC (0.0-0.2); Platelet Count 443 K/mm3 (150-400); RDW Standard Deviation 43.8 fL (35.1-46.3); Red Blood Cell Count 5.77 M/mm3 (3.80-5.20)
[2022-01-17 17:18] LABS: BASOPHILS PERCENT MAN 0 % (0-2); EOSINOPHILS ABSOLUTE MAN 0.26 K/mm3 (0.00-0.68); EOSINOPHILS PERCENT MAN 1 % (0-6); LYMPHOCYTES ABSOLUTE MAN 3.68 K/mm3 (0.84-5.20); LYMPHOCYTES PERCENT MAN 14 % (21-46); MONOCYTES ABSOLUTE MAN 1.57 K/mm3 (0.16-1.47); MONOCYTES PERCENT MAN 6 % (4-13); MYELOCYTE ABSOLUTE MAN 1.05 K/mm3 (0.00-0.00); MYELOCYTE PERCENT MAN 4 % (0-0); NEUTROPHILS ABSOLUTE MAN 19.72 K/mm3 (1.96-9.15); SEG NEUTROPHILS PERCENT MAN 75 % (41-73); TOTAL CELLS COUNTED 100
[2022-01-17 17:26] LABS: Base Excess Venous 9.1 mmol/L; Bicarbonate Venous 29.5 mmol/L (24.0-30.0); PCO2 Venous 62.8 mmHg (38-42); PO2 Venous 43.1 mmHg (38-42); pH Blood Venous 7.35 (7.34-7.37)
[2022-01-17 18:48] LABS: Influenza A, PCR NEGATIVE (NEGATIVE); Influenza B, PCR NEGATIVE (NEGATIVE); Resp Syncytial Virus, PCR NEGATIVE (NEGATIVE); SARS-Cov-2 (COVID-19) PCR, MMC NEGATIVE (NEGATIVE)
[2022-01-17 23:20] LABS: Source, Urine Straight Cath
[2022-01-17 23:22] LABS: Bilirubin, Urine Neg (Neg); Blood, Urine Neg (Neg); Glucose Qualitative, Urine Neg (Neg); Ketones, Urine Neg (Neg); Leukocyte Esterase, Urine Neg (Neg); Nitrite, Urine Neg (Neg); Protein, Urine Neg (Neg); Urobilinogen, Urine NORM (Normal)
[2022-01-17 23:26] LABS: Appearance, Urine Clear (Clear); Color, Urine Yellow (P-Yellow)
[2022-01-17 23:36] LABS: U Amphetamine Screen Not Detected; U Barbituate Screen Not Detected; U Benzodiazapine Screen Not Detected; U Buprenorphine Screen Not Detected; U Cannabinoids Screen Not Detected; U Cocaine Screen Not Detected; U Methadone Screen Not Detected; U Methamphetamine Screen Not Detected; U Opiates Screen Not Detected; U Oxycodone Screen Not Detected; U Phencyclidine Screen Not Detected; U Propoxyphene Screen Not Detected
[2022-01-18 00:06] LABS: Hematocrit 48.5 % (33.0-51.0); Hemoglobin 15.8 g/dL (11.5-16.0); Mean Corpuscular HGB 30.2 pg (26.0-34.0); Mean Corpuscular HGB Conc 32.6 g/dL (31.5-36.5); Mean Corpuscular Volume 93 fL (80-100); Mean Platelet Volume 10.4 fL (9.1-12.4); NRBC ABSOLUTE 0.02 K/mm3 (0.00-0.02); NRBC Auto 0.1 /100 WBC (0.0-0.2); Platelet Count 410 K/mm3 (150-400); RDW Coefficient Variation 12.9 % (11.7-14.2); RDW Standard Deviation 43.9 fL (35.1-46.3); Red Blood Cell Count 5.24 M/mm3 (3.80-5.20); White Blood Cell Count 24.69 K/mm3 (4.00-11.30)
[2022-01-18 00:24] LABS: Albumin/Globulin Ratio 0.7 (0.8-1.8); Bilirubin, Total 0.4 mg/dL (0.1-1.0); Bun/Creatinine Ratio 41.1 (12.0-20.0); Calcium, Blood 9.1 mg/dL (8.5-10.1); Creatinine, Blood 2.65 mg/dL (0.40-1.00); Globulin, Blood 4.5 g/dL (2.2-4.0); Potassium, Blood 4.2 mmol/L (3.5-5.5); Total Protein, Blood 7.5 g/dL (6.4-8.2)
[2022-01-18 00:28] LABS: BAND PERCENT MAN 2 % (0-8); BASOPHILS PERCENT MAN 0 % (0-2); EOSINOPHILS PERCENT MAN 0 % (0-6); LYMPHOCYTES ABSOLUTE MAN 1.97 K/mm3 (0.84-5.20); LYMPHOCYTES PERCENT MAN 8 % (21-46); METAMYELOCYTE ABSOLUTE MAN 0.49 K/mm3 (0.00-0.00); METAMYELOCYTE PERCENT MAN 2 % (0-0); MONOCYTES ABSOLUTE MAN 1.48 K/mm3 (0.16-1.47); MONOCYTES PERCENT MAN 6 % (4-13); MYELOCYTE ABSOLUTE MAN 0.74 K/mm3 (0.00-0.00); MYELOCYTE PERCENT MAN 3 % (0-0); NEUTROPHILS ABSOLUTE MAN 19.99 K/mm3 (1.96-9.15); SEG NEUTROPHILS PERCENT MAN 79 % (41-73); TOTAL CELLS COUNTED 100
--- NOTE | 2022-01-18 07:16 | NUR ---
PT ON ADMIT A/0X4 HOWEVER NOTED WITH INTERMITTENT CONFUSION. PT VERY PLEASANT. STRAIGHT CATH DONE TO OBTAIN UA. PT STATES SHE IS INCONTINENT. BLADDER SCAN DONE AT 0600 60 ML. IV FLUIDS INFUSING PER ORDER. PT NOT ABLE TO MOVE IN BED THEREFORE TURNED Q2H.
--- NOTE | 2022-01-18 18:00 | NUR ---
SHIFT SUMMARY PATIENT DENIES PAIN, NAUSEA, AND SHORTNESS OF BREATH. PATIENT IS A 2P ASSIST TO REPOSITION. PATIENT WORKED WITH PT. ABLE TO STAND AND TAKE SOME STEPS SIDEWAYS WITH 2P ASSIST. PATIENT SLEPT MOST OF DAY. PATIENT IS EATING AND DRINKING WELL. PATIENT VOIDED THIS SHIFT MULTIPLE TIMES, POST VOID BLADDER SCAN SHOWED 42MLS. PATIENT IS PLEASANT AND COOPERATIVE WITH CARE.
[2022-01-19 05:53] LABS: BASOPHILS ABSOLUTE AUTO 0.07 K/mm3 (0.00-0.23); BASOPHILS PERCENT AUTO 0 % (0-2); EOSINOPHILS ABSOLUTE AUTO 0.55 K/mm3 (0.00-0.68); EOSINOPHILS PERCENT AUTO 3 % (0-6); Hematocrit 41.4 % (33.0-51.0); Hemoglobin 13.2 g/dL (11.5-16.0); IMMATURE GRAN ABSOLUTE AUTO 0.57 K/mm3 (0.00-0.10); IMMATURE GRAN PERCENT AUTO 4 % (0-1); LYMPHOCYTES ABSOLUTE AUTO 3.37 K/mm3 (0.84-5.20); LYMPHOCYTES PERCENT AUTO 21 % (21-46); MONOCYTES ABSOLUTE AUTO 1.35 K/mm3 (0.16-1.47); MONOCYTES PERCENT AUTO 8 % (4-13); Mean Corpuscular HGB 30.1 pg (26.0-34.0); Mean Corpuscular HGB Conc 31.9 g/dL (31.5-36.5); Mean Corpuscular Volume 94 fL (80-100); Mean Platelet Volume 10.7 fL (9.1-12.4); NEUTROPHILS PERCENT AUTO 63 % (41-73); Platelet Count 308 K/mm3 (150-400); RDW Coefficient Variation 13.2 % (11.7-14.2); RDW Standard Deviation 45.2 fL (35.1-46.3); Red Blood Cell Count 4.39 M/mm3 (3.80-5.20); White Blood Cell Count 16.11 K/mm3 (4.00-11.30)
[2022-01-19 06:22] LABS: Albumin, Blood 2.5 g/dL (3.4-5.0); Albumin/Globulin Ratio 0.7 (0.8-1.8); Bilirubin, Total 0.4 mg/dL (0.1-1.0); Calcium, Blood 8.6 mg/dL (8.5-10.1); Globulin, Blood 3.8 g/dL (2.2-4.0); Magnesium, Blood 2.5 mg/dL (1.6-2.4); Potassium, Blood 3.7 mmol/L (3.5-5.5); Total Protein, Blood 6.3 g/dL (6.4-8.2)
--- NOTE | 2022-01-19 07:15 | NUR ---
PT WITH NO NEW C/O OVERNIGHT. PT VOIDING W/O ISSUE PVR 42 ML. PT STAYED UP LATE AND WENT TO BED APPROX. 0300.
--- NOTE | 2022-01-19 11:25 | NUR ---
Echocardiogram completed.
--- NOTE | 2022-01-19 16:12 | NUR ---
Upon responding to a spiritual care referral, I visit pt. Pt is lying in bed and alert. She wakes up minimally at the sound of her name and speaks with slurred speech and garbled words. She clears up a bit as she attempts to wake up. I finally ask if I could pray for the patient and she says, "Please do." I gladly provide prayer. I ask pt if the prayer was ok and she says, " that was good, real good. Thank you, I feel much better." Then, I let her return to napping. Spiritual care will remain available to pt and family.
--- NOTE | 2022-01-19 16:29 | NUR ---
SHIFT SUMMARY PATIENT DENIES PAIN, NAUSEA, AND SHORTNESS OF BREATH. PATIENT IS A 2P ASSIST TO REPOSITION AND TRANSFER. PATIENT ON ROOM AIR DURING THE DAY, SATURATING ABOVE 95%. SHE DOES USE 1L VIA N/C AT NIGHT. FAMILY AT BEDSIDE MOST OF SHIFT. PATIENT WORKED WITH OT AND PT. SEE NOTES FOR UPDATE. PATIENT TIRED AFTER THERAPY AND SLEPT IN AFTERNOON. PATIENT EATING AND DRINKING WELL. PATIENT A&O 3-4 WITH INTERMITTENT CONFUSION. PATIENT IS PLEASANT AND COOPERATIVE WITH CARE.
[2022-01-20 05:03] LABS: BASOPHILS ABSOLUTE AUTO 0.06 K/mm3 (0.00-0.23); BASOPHILS PERCENT AUTO 1 % (0-2); EOSINOPHILS ABSOLUTE AUTO 0.59 K/mm3 (0.00-0.68); EOSINOPHILS PERCENT AUTO 5 % (0-6); Hematocrit 39.9 % (33.0-51.0); Hemoglobin 12.6 g/dL (11.5-16.0); IMMATURE GRAN ABSOLUTE AUTO 0.54 K/mm3 (0.00-0.10); IMMATURE GRAN PERCENT AUTO 5 % (0-1); LYMPHOCYTES ABSOLUTE AUTO 3.11 K/mm3 (0.84-5.20); LYMPHOCYTES PERCENT AUTO 27 % (21-46); MONOCYTES ABSOLUTE AUTO 1.13 K/mm3 (0.16-1.47); MONOCYTES PERCENT AUTO 10 % (4-13); Mean Corpuscular HGB Conc 31.6 g/dL (31.5-36.5); Mean Corpuscular Volume 95 fL (80-100); Mean Platelet Volume 10.7 fL (9.1-12.4); NEUTROPHILS ABSOLUTE AUTO 6.12 K/mm3 (1.96-9.15); NEUTROPHILS PERCENT AUTO 53 % (41-73); Platelet Count 275 K/mm3 (150-400); RDW Coefficient Variation 13.2 % (11.7-14.2); RDW Standard Deviation 45.6 fL (35.1-46.3); White Blood Cell Count 11.55 K/mm3 (4.00-11.30)
[2022-01-20 05:24] LABS: Albumin, Blood 2.7 g/dL (3.4-5.0); Anion Gap 5 mmol/L (6-16); Blood Urea Nitrogen 71 mg/dL (8-24); Bun/Creatinine Ratio 49.7 (12.0-20.0); CO2, Blood 32 mmol/L (21-32); Calcium, Blood 9.1 mg/dL (8.5-10.1); Chloride, Blood 102 mmol/L (98-108); Creatinine, Blood 1.43 mg/dL (0.40-1.00); Glomerular Filtration Rate 35 (60-); Glucose, Blood 164 mg/dL (70-99); Magnesium, Blood 2.2 mg/dL (1.6-2.4); Phosphorus, Blood 3.3 mg/dL (2.5-4.9); Potassium, Blood 3.7 mmol/L (3.5-5.5); Sodium, Blood 139 mmol/L (136-145)
--- NOTE | 2022-01-20 07:45 | NUR ---
PT OVERNIGHT WITH NO NEW COMPLAINS. PT ABLE TO ANSWER A/O QUESTIONS CORRECTLY HOWEVER SHE DOES HAVE PERIODS IN WHICH SHE IS CONFUSED. PT HEAVILY INCONTINENT OF URINE. PT IS VERY PLEASANT AND LIKES TO JOKE WITH STAFF. KEPT ON 2L NC OVERNIGHT WHILE ASLEEP.
--- NOTE | 2022-01-20 18:14 | NUR ---
SHIFT SUMMARY PT UP IN RECLINER FOR SEVERAL HOURS TODAY AND TOLERATED WELL. NIECE AT BEDSIDE FOR SEVERAL HOURS WELL. UNABLE TO ANSWER ORIENTING QUESTIONS SUCH WHERE SHE IS. STATES "I'M RIGHT HERE IN THE CHAIR." WHEN ASKED TO SAY THE BUILDING OR TOWN SHE IS UNABLE TO COME UP WITH AN ANSWER. FOUND KICKING HER LEGS OVER THE SIDE OF THE BED THIS EVENING PRIOR TO SUPPER AND WHEN ASKED WHERE SHE WAS GOING SHE DIDN'T KNOW. DOES FOLLOW DIRECTIONS AND IS COOPERATIVE WITH CARE BUT QUITE FORGETFUL. ABLE TO TRANSFER TO COMMODE WITH 2 PEOPLE AND FWW BUT WITH FREQUENT AND REPEATED CUING.
--- NOTE | 2022-01-20 20:52 | NUR ---
PATIENT CONFUSED. OOB ATTEMPT. ACTIVATING BED ALARM X TWO. WANTING TO LEAVE TO GO OUTSIDE [place]. ASKING ABOUT A DOG. NOT ABLE TO REORIENT AT THIS TIME. BED ALARM ACTIVATED.
--- NOTE | 2022-01-21 04:16 | NUR ---
SHIFT SUMMARY PATIENT CONFUSED FIRST PART OF SHIFT REPORTING SHE WAS LEAVING MULTIPLE TIMES. EITHER TO GO HOME OR UP ON A HILL TO SEE A DOG. PATIENT NOT ABLE TO REORIENT AT THIS TIME. AXOX 2 AND BEDREST. PIV REMAINS INTACT. NS INFUSING AT 75 mL/HR. TELE MONITOR NSR 91. CBG 154. MILD HYPERTENSIVE WITH HTN MEDS STARTING THIS AM. DENIES PAIN, SOB, AND N/V. BED ALARM ACTIVATED FOR FALL RISK. BED IN LOWEST POSITION. CALL LIGHT IN REACH. WILL CONTINUE TO MONITOR UNTIL DAY SHIFT NURSE ASSUMES CARE.
[2022-01-21 06:04] LABS: BASOPHILS ABSOLUTE AUTO 0.05 K/mm3 (0.00-0.23); BASOPHILS PERCENT AUTO 1 % (0-2); EOSINOPHILS ABSOLUTE AUTO 0.49 K/mm3 (0.00-0.68); EOSINOPHILS PERCENT AUTO 5 % (0-6); Hematocrit 39.8 % (33.0-51.0); Hemoglobin 12.6 g/dL (11.5-16.0); IMMATURE GRAN ABSOLUTE AUTO 0.37 K/mm3 (0.00-0.10); IMMATURE GRAN PERCENT AUTO 4 % (0-1); LYMPHOCYTES ABSOLUTE AUTO 2.43 K/mm3 (0.84-5.20); LYMPHOCYTES PERCENT AUTO 23 % (21-46); MONOCYTES ABSOLUTE AUTO 0.89 K/mm3 (0.16-1.47); MONOCYTES PERCENT AUTO 8 % (4-13); Mean Corpuscular HGB Conc 31.7 g/dL (31.5-36.5); Mean Corpuscular Volume 95 fL (80-100); Mean Platelet Volume 10.3 fL (9.1-12.4); NEUTROPHILS ABSOLUTE AUTO 6.31 K/mm3 (1.96-9.15); NEUTROPHILS PERCENT AUTO 60 % (41-73); Platelet Count 253 K/mm3 (150-400); RDW Coefficient Variation 13.1 % (11.7-14.2); RDW Standard Deviation 45.1 fL (35.1-46.3); White Blood Cell Count 10.54 K/mm3 (4.00-11.30)
[2022-01-21 06:20] LABS: Albumin, Blood 2.7 g/dL (3.4-5.0); Anion Gap 4 mmol/L (6-16); Blood Urea Nitrogen 46 mg/dL (8-24); Bun/Creatinine Ratio 40.4 (12.0-20.0); CO2, Blood 32 mmol/L (21-32); Calcium, Blood 9.4 mg/dL (8.5-10.1); Chloride, Blood 106 mmol/L (98-108); Creatinine, Blood 1.14 mg/dL (0.40-1.00); Glomerular Filtration Rate 46 (60-); Glucose, Blood 196 mg/dL (70-99); Magnesium, Blood 1.9 mg/dL (1.6-2.4); Phosphorus, Blood 2.5 mg/dL (2.5-4.9); Potassium, Blood 4.1 mmol/L (3.5-5.5); Sodium, Blood 142 mmol/L (136-145)
[2022-01-21 11:40] LABS: Base Excess Venous 5.8 mmol/L; Bicarbonate Venous 29.3 mmol/L (24.0-30.0); PCO2 Venous 38.8 mmHg (38-42); pH Blood Venous 7.49 (7.34-7.37)
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
[2022-01-22 06:06] LABS: BASOPHILS ABSOLUTE AUTO 0.06 K/mm3 (0.00-0.23); BASOPHILS PERCENT AUTO 1 % (0-2); EOSINOPHILS ABSOLUTE AUTO 0.35 K/mm3 (0.00-0.68); EOSINOPHILS PERCENT AUTO 3 % (0-6); Hematocrit 40.3 % (33.0-51.0); Hemoglobin 13.2 g/dL (11.5-16.0); IMMATURE GRAN ABSOLUTE AUTO 0.29 K/mm3 (0.00-0.10); IMMATURE GRAN PERCENT AUTO 3 % (0-1); LYMPHOCYTES ABSOLUTE AUTO 2.14 K/mm3 (0.84-5.20); LYMPHOCYTES PERCENT AUTO 18 % (21-46); MONOCYTES ABSOLUTE AUTO 0.85 K/mm3 (0.16-1.47); MONOCYTES PERCENT AUTO 7 % (4-13); Mean Corpuscular HGB 30.3 pg (26.0-34.0); Mean Corpuscular HGB Conc 32.8 g/dL (31.5-36.5); Mean Corpuscular Volume 93 fL (80-100); Mean Platelet Volume 10.6 fL (9.1-12.4); NEUTROPHILS ABSOLUTE AUTO 8.05 K/mm3 (1.96-9.15); NEUTROPHILS PERCENT AUTO 69 % (41-73); Platelet Count 253 K/mm3 (150-400); RDW Standard Deviation 44.2 fL (35.1-46.3); Red Blood Cell Count 4.35 M/mm3 (3.80-5.20); White Blood Cell Count 11.74 K/mm3 (4.00-11.30)
--- NOTE | 2022-01-22 06:09 | NUR ---
SHIFT SUMMARY: PT IS ALERT AND CONFUSED WITH MINIMAL VERBAL RESPONSE. PT DOES NOT USE HER CALL LIGHT, AND NOT OUT OF BED OVERNIGHT, BED ALARM SET. PT INCONTINENT, 2 PERSON TURN AND CHANGE. PT SHOWS NO S/S FOR PAIN, NAUSEA, VOMITING, OR SOB. BED IN LOW POSITION, CALL LIGHT WITHIN REACH. WILL CONTINUE TO MONITOR AND REPORT TO DAY NURSE.
[2022-01-22 06:37] LABS: Albumin, Blood 2.8 g/dL (3.4-5.0); Anion Gap 9 mmol/L (6-16); Blood Urea Nitrogen 28 mg/dL (8-24); Bun/Creatinine Ratio 29.7 (12.0-20.0); CO2, Blood 29 mmol/L (21-32); Calcium, Blood 9.5 mg/dL (8.5-10.1); Chloride, Blood 105 mmol/L (98-108); Creatinine, Blood 0.94 mg/dL (0.40-1.00); Glomerular Filtration Rate 58 (60-); Glucose, Blood 196 mg/dL (70-99); Magnesium, Blood 1.7 mg/dL (1.6-2.4); Phosphorus, Blood 2.4 mg/dL (2.5-4.9); Sodium, Blood 143 mmol/L (136-145)
[2022-01-22 13:50] LABS: Influenza A, PCR NEGATIVE (NEGATIVE); Influenza B, PCR NEGATIVE (NEGATIVE); Resp Syncytial Virus, PCR NEGATIVE (NEGATIVE); SARS-Cov-2 (COVID-19) PCR, MMC NEGATIVE (NEGATIVE)
--- NOTE | 2022-01-22 15:20 | NUR ---
[facility] W/ TRANSPORT HERE TO PICK PT UP. 2 PERSON MAX TRANSFER TO W/C. TO [facility]. NIECE PRESENT WHEN PT LEFT AND SHE TOOK PTS BELONGINGS. PICKED UP AT 1500. REPORT CALLED TO JARAD AT [facility].
== END 2022-01-22 15:00 | DRG 682 ==
LOC: ER 15:53 → MEDS 15:54
PROVIDERS: Family Medicine; Hospitalist; Student in an Organized Health Care Education/Training Program; ADMIT Internal Medicine
DX: N17.9 Acute kidney failure, unspecified (principal); G92.8 Other toxic encephalopathy; F05 Delirium due to known physiological condition; Z68.43 Body mass index [BMI] 50.0-59.9, adult; N39.0 Urinary tract infection, site not specified; Z20.822 Contact with and (suspected) exposure to COVID-19; D72.829 Elevated white blood cell count, unspecified; M19.90 Unspecified osteoarthritis, unspecified site; Z66 Do not resuscitate; E78.00 Pure hypercholesterolemia, unspecified; E11.22 Type 2 diabetes mellitus with diabetic chronic kidney disease; E66.01 Morbid (severe) obesity due to excess calories; J44.9 Chronic obstructive pulmonary disease, unspecified; E03.9 Hypothyroidism, unspecified; G47.33 Obstructive sleep apnea (adult) (pediatric); E86.0 Dehydration; M81.0 Age-related osteoporosis without current pathological fracture; I12.9 Hypertensive chronic kidney disease with stage 1 through stage 4 chronic kidney disease, or unspecified chronic kidney disease; N18.30 Chronic kidney disease, stage 3 unspecified; Z90.49 Acquired absence of other specified parts of digestive tract; Z98.890 Other specified postprocedural states; Z87.440 Personal history of urinary (tract) infections; Z98.41 Cataract extraction status, right eye; Z98.42 Cataract extraction status, left eye; Z88.2 Allergy status to sulfonamides; Z88.7 Allergy status to serum and vaccine; Z99.81 Dependence on supplemental oxygen; Z79.4 Long term (current) use of insulin; Z79.82 Long term (current) use of aspirin; Z79.899 Other long term (current) drug therapy
CPT/HCPCS: 0241U; 36415; 51701; 70450; 71046; 80053; 80069; 81003; 82140; 82803; 82947; 83735; 83880; 84100; 84145; 84484; 85025; 92610; 93005; 93010; 93306; 93880; 94644; 94664; 94760; 96361; 96372; 96374; 97110; 97162; 97166; 97530; 97535; 99285-25; A9270; G0378; J0696; J1650; J1815; J7030; J7040